=== PATIENT | female | born 1930 | race African-American/Black ===

== ENCOUNTER 2017-07-05 22:46 | Observation (INO) | payer MEDICARE, BC ==
[~2017-07-05] VITALS: Ht 157.5 cm; Wt 53.5 kg
--- NOTE | ~2017-07-05 | CO ---
Unit #: [id number] #: [id number] Patient: TAVON CRUZ [id number] [facility] [address] [facility] [place], [place] [address] [id number] Breanna MR#: [id number] NAME: TAVON CRUZ ROOM: 575 Age: 86 Sex: F Admission Date: 07/06/2017 : 1930 Attending Physician: Ford Rivera M.D. Primary Care Physician: Primary Care Physician No CONSULTATION REPORT REASON FOR CONSULTATION Left facial numbness. PRIMARY CARE PHYSICIAN Dr. Mejia. PATIENT IDENTIFICATION This is an 86-year-old right-handed female, who is evaluated in room [address] [facility]. SOURCE OF INFORMATION The patient and her daughter and my discussion with the admitting team. PROBLEM LIST 1. Hypertension. 2. Hypothyroidism. 3. Allergies. 4. Degenerative disk disease. 5. Thyroid surgery. 6. Hernia repair. 7. Bowel blockage surgery. 8. Esophageal surgery. HISTORY OF PRESENT ILLNESS This is a very pleasant 86-year-old right-handed female, who was actually admitted because she reported some numbness on the left side of the face, but when asked she said that this has been going on for several days and it got worse yesterday. One of the other issues that she has is her blood pressure has been elevated, when she came in her blood pressure was 208/96. The patient and her daughter reports that whenever her other daughter gets stressed, they have altercation and her blood pressure goes up. There was never weakness. There was never double vision. There was never speech, swallowing, or breathing problems. There was never focal weakness, drooling, or other issues. There were no facial asymmetry. This has been going on for several days and I reviewed her MRI and to my view on my monitor, it looks okay with significant small-vessel disease, but nothing acute and if it was going on for several days, then likely it would have shown up. She is already on aspirin. She is already on Lipitor. No change in medication. No headaches, no nausea, no vomiting, no seizures, no migraine. Unit #: [id number] #: [id number] Patient: TAVON CRUZ PAST MEDICAL HISTORY As discussed above. PAST SURGICAL HISTORY As discussed above. ALLERGIES Latex. HOME MEDICATIONS Norvasc, aspirin, Claritin, Lipitor, mirtazapine, vitamin D, and Ergo capsule. FAMILY HISTORY Reviewed and noncontributory secondary to her age. No stroke in young or other such condition. SOCIAL HISTORY No alcohol, tobacco, or IV drug use. REVIEW OF SYSTEMS Detailed review of systems was attempted. GENERAL: The patient denies any weight issues. Denies any sleep issues. Denies any fever, chills, rigors, or sweats. HEENT: No headaches. No double vision, earache, runny nose, or sore throat. She had left-sided numbness of the face, which has resolved, it sort of comes and goes. NECK: No neck problems. CARDIOVASCULAR: No chest pain, clubbing, cyanosis, orthopnea, or palpitation. PULMONARY: No shortness of air, cough, or expectoration. GI: No nausea, vomiting, diarrhea, or constipation. GENITOURINARY: No genitourinary symptoms. EXTREMITIES: No extremity problems. BACK: No back problem. PSYCHIATRIC: No psychotic issue. NEUROLOGIC: Issue as discussed. No other hematologic, dermatologic, or endocrine problems. PHYSICAL EXAMINATION VITAL SIGNS: Temperature 98 degrees Fahrenheit, pulse 63, and respirations 18. Blood pressure 131/65, it was as high as 208 systolic and 104 diastolic. O2 saturations were 98% to 100%. Weight of 117 pounds. BMI was 21. NEUROLOGIC: The patient is awake. She is alert. She is oriented. She can name. She can follow commands. No right/left confusion. No finger agnosia. Cranial nerve examination demonstrates full alberto of vision to confrontation. Eye movements are conjugate. I did not see any ptosis. I did not see any nystagmus. Extraocular movements are intact. Sensation on the face and scalp are normal. Strength of muscles of facial expression are normal. Hearing seemed to be intact bilaterally. Tongue was midline. I could not visualize her oropharynx or uvula. Head turning was spontaneous. Motor examination demonstrated normal bulk, tone. Strength was 5-/5 all Unit #: [id number] #: [id number] Patient: TAVON CRUZ. Sensory examination intact for soft touch and pain sensation. No extinction was seen. Romberg was not evaluated. Gait examination was deferred. I could not get any reflexes. Toes are equivocal. DIAGNOSTIC STUDIES LABORATORY RESULTS: Reviewed. Her sodium was 130. Cholesterol was 222 and LDL 78. Hemoglobin A1c not checked. B12 pending. White count was 3.8. Urinalysis was unremarkable. IMAGING STUDIES: MRI reviewed and results are pending. IMPRESSION A very interesting 86-year-old female with numbness on the left side of the face going on for several days. I saw the CTA and MRI, I do not see anything acute and if it is negative, I agree with increasing aspirin to 325 and continuing Lipitor and follow up with Neurology as an outpatient. I do recommend checking hemoglobin A1c now or as an outpatient do carotid ultrasounds, at least an echo and go from there. It does not look like reversible ischemic neurological deficit or stroke or transient ischemic attack are present, but because of her age and risk factor that has to be considered. Call me for any other questions, issues, or concerns. Dictated by... Stephanie Lobo/leilani TD: 07/07/2017 12:24 JOB #: [id number] CONSULTATION REPORT Page 1 of 1 X Zacarias Ames MD X CONSULTATION REPORT
--- NOTE | ~2017-07-05 | HP ---
Unit #: [id number] #: [id number] Patient: TAVON VELASQUEZ [id number] [address] [place], [place] [address] [id number] I MR#: [id number] NAME: TAVON VELASQUEZ ROOM: 575 Age: 86 Sex: F Admission Date: 07/06/2017 : 1930 Attending Physician: Ford Rivera M.D. Primary Care Physician: No Primary Care Physician HISTORY AND PHYSICAL Primary care provider is [place]. CHIEF COMPLAINT Left facial numbness. HISTORY OF PRESENT ILLNESS Ms. Velasquez is a really nice 86-year-old -Irish female who presents to the ER for above. Patient states she has had a 1 week history of intermittent left facial numbness. Numbness is present only over the maxillary portion of the cheek down to the jaw bone. It will occur spontaneously and then resolve spontaneously. She has had no associated speech difficulties, no difficulty swallowing, any vision change nor any tingling, numbness, weakness of the upper extremities. Symptoms began when her daughter began stressing her out within the last week. However, last night she noted her blood pressure at home was quite high. She became confused and, thus, presented to the emergency department. Upon presentation, patient's blood pressure was 208/96. It appears she was given 0.1 mg of clonidine p.o., 10 mg of hydralazine and her blood pressure came down. Her numbness has resolved. Blood pressure since last night has been completely normal at 100-120 systolic. Her daughter, with whom she lives, is also present and states her blood pressure is well controlled at 120-130 systolic at home on her lisinopril. Patient has had similar complaints of tingling, numbness and weakness of the left side in 2005 and, unfortunately, records are somewhat sketchy but appears it is felt she had a questionable TIA. She has been taking aspirin daily at home. Again, her symptoms at this point are completely resolved. She has not had any chest pain, any palpitations, any orthopnea, any cough, any fever or any other associated symptoms. PAST MEDICAL HISTORY 1. Hypertension. 2. Seasonal allergies. 3. Hypothyroidism. 4. Questionable history of TIA in 2005. 5. Chronic physical deconditioning requiring a walker and wheelchair. 6. History of small bowel obstruction. PAST SURGICAL HISTORY 1. Partial thyroidectomy for goiter. 2. Bowel surgery x2 for small bowel obstruction. 3. Right inguinal hernia x2. ALLERGIES Allergies include latex. Unit #: [id number] #: [id number] Patient: TAVON VELASQUEZ MEDICATIONS Home medications include: 1. Aspirin 81 mg daily. 2. Zyrtec 10 mg daily. 3. Remeron 15 mg at bedtime. 4. Lisinopril 20 mg daily. 5. Levothyroxine 75 mcg p.o. daily. FAMILY HISTORY Significant for cancer and hypertension. SOCIAL HISTORY Patient lives at home with her daughter. Again, she does require a walker or wheelchair for ambulation. She has had 2 recent falls at home for which her PCP is aware without any injury. No alcohol, no tobacco, no illicit drug use. REVIEW OF SYSTEMS No recent weight change, no vision change, no difficulty swallowing, no hot or cold symptoms, no fever, no chest pain, no palpitations, no orthopnea, no cough, no constipation, diarrhea, melena or hematochezia, no dysuria, no new skin lesion. Again, left facial numbness is now resolved. Otherwise, 10-point review of systems is negative. PHYSICAL EXAM VITAL SIGNS: Current temperature 98.4, blood pressure 121/77, pulse rate 71, respiratory rate 13, oxygen saturation is 100% on room air. GENERAL: Patient is awake, alert. She is oriented x3 and very pleasant. HEENT: Pupils equally round and reactive to light bilaterally. Anicteric sclerae. No conjunctival pallor. Oropharynx with moist mucous membranes. No erythema or exudate. NECK: Neck is supple. No lymphadenopathy. No appreciable thyroid present. No JVD. HEART: Heart is regular rate and rhythm without any murmur, rub or gallop. LUNGS: Lungs are clear to auscultation bilaterally. ABDOMEN: Abdomen is soft, nontender, nondistended. Positive bowel sounds. No appreciable hepatosplenomegaly. EXTREMITIES: No cyanosis, clubbing, or edema. Pedal pulses 2/4. SKIN: Skin is warm, moist, is without rash. MUSCULOSKELETAL: No joint erythema noted. 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 NEUROLOGIC: Cranial nerves II-XII are intact bilaterally. Strength is 4+/5 in the upper extremities bilaterally and 3+ to 4 in the lower extremities bilaterally. Negative Babinski. Patellar reflex is 2/4 bilaterally as is brachioradialis reflex bilaterally. Gait, however, was not assessed nor was rapid alternating hand movements. Pronator drift is negative. DIAGNOSTIC STUDIES LABORATORY: Lab work done in the emergency department reveals a white blood cell count of 3.8, hemoglobin 12.1, platelet count of 232,000. CMP reveals a sodium of 130, potassium 3.9, chloride 94, bicarb 29, BUN 7, creatinine 0.4, glucose of 93. LFTs are all normal and calcium mildly low at 8.3. Unit #: [id number] #: [id number] Patient: TAVON VELASQUEZ Urinalysis is completely normal. Initial troponin in the ER was negative. CARDIOVASCULAR: EKG reveals normal sinus rhythm. There is Q wave present in V4 through V6 but no other acute abnormalities. IMAGING: CT scan of the head without contrast in the emergency department was negative for any acute change. Small vessel changes were noted. ASSESSMENT 1. Intermittent left check paresthesia, question TIA versus other. 2. Hypertension with hypertensive crisis, now resolved. 3. Leukopenia without baseline. 4. Mild hypocalcemia. 5. Gastroesophageal reflux disease. 6. Hypothyroidism. 7. Physical deconditioning. 8. Probable osteoporosis. PLAN 1. Will admit patient to observation. 2. CT scan of the head, as noted above, was already done. MRI of the brain has been ordered and is currently pending and Dr. Ames has been consulted for evaluation. 3. I am going to check a TSH and fasting lipid panel (1) lab for completeness. I will also check a vitamin B12 level. 4. I will place patient on calcium tablets to hopefully improve calcium levels. 5. I think leukopenia can be monitored as an outpatient. It may very well be chronic in this elderly patient. 6. Continue home medications for other chronic conditions. 7. Anticipate discharge home if MRI is negative. Dictated by Africa Beltrán M.D. SANDIE/bentley TD: 07/06/2017 15:08 JOB #: [id number] HISTORY AND PHYSICAL Page 1 of 1 X Africa Beltrán MD HISTORY AND PHYSICAL
--- NOTE | ~2017-07-05 | CT71 ---
[facility] A Service of [facility] RADIOLOGY TEXT RESULTS PATIENT: TAVON CRUZ LOCATION: [facility] : 32 UNIT #: [id number] AGE: [address]: Ford Rivera MD SEX: F ORDER DR: [id number] [place], [place] [address] [id number] MR#: [id number] Acc #: [id number] NAME: TAVON CRUZ : 1930 SEX: F STUDY DATE/TIME: 07/06/2017 0:20 UNIT: [facility] ROOM: [facility] STUDY DESCRIPTION: CT Head Wo Contrast Attending Physician: Ford Rivera M.D. Ordering Physician: Sergey Tuttle M.D. Primary Care Physician: Primary Care Physician No MEDICAL IMAGING REPORT This report is preliminary unless electronic signature is present EXAM CT head without contrast INDICATIONS Left-sided facial numbness off and on today PROCEDURE Unenhanced CT of the head. This CT exam was performed with one or more of the following radiation dose reduction techniques: automatic exposure control, adjustment of mA and/or kV according to patient size, and iterative reconstruction. COMPARISON 10/21/2006 FINDINGS No acute hemorrhage, abnormal mass effect, extraaxial fluid collection or hydrocephalus. Diffuse white matter hypoattenuation. No definitive evidence for acute early subacute large territory infarct. No depressed calvarial fracture. Paranasal sinuses and mastoid air cells are clear. IMPRESSION 1. No acute intracranial findings. 2. Chronic small vessel ischemic change. 3. If there is ongoing clinical suspicion for an acute early subacute infarct, brain MRI may be helpful. Dictated by... Bonifacio Pruitt M.D. THIS IS AN ELECTRONICALLY VERIFIED REPORT [facility] A Service of [facility] RADIOLOGY TEXT RESULTS PATIENT: TAVON CRUZ LOCATION: [facility] : 32 UNIT #: [id number] AGE: [address]: Ford Rivera MD SEX: F ORDER DR: Bonifacio Pruitt M.D. at 07/07/2017 10:03 PM EED/to TD: 07/06/2017 13:40 JOB #: [id number] MEDICAL IMAGING REPORT Page 1 of 1 COPY
--- NOTE | ~2017-07-05 | MR18 ---
[facility] A Service of [facility] & [facility] RADIOLOGY TEXT RESULTS PATIENT: TAVON CRUZ LOCATION: [facility] 575-01 : 32 UNIT #: [id number] AGE: [address]: Ford Rivera MD SEX: F ORDER DR: [id number] [facility] [address] [place], [place] [address] [id number] I MR#: [id number] Acc #: [id number] NAME: TAVON CRUZ : 1930 SEX: F STUDY DATE/TIME: 07/06/2017 13:13 UNIT: [facility] ROOM: [facility] STUDY DESCRIPTION: MR Brain Wo Contrast Attending Physician: Ford Rivera M.D. Ordering Physician: Robin Garrett M.D. Primary Care Physician: Primary Care Physician No MRI CENTER REPORT This report is preliminary unless electronic signature is present. EXAM MRI brain without HISTORY Numbness left side of face off and on for a week. History of hypertension. FINDINGS MRI of the brain was performed without contrast using routine 1.5T imaging technique with motion limiting sequences. Comparison head CT is from 07/06/2017. Prior brain MRI is from 10/22/2006. There is no evidence for a recent ischemic insult on the diffusion series. There is generalized atrophy, age appropriate. There is incidental note made of a partially empty sella. There is no extraaxial fluid collection. There is extensive white matter signal abnormality most confluent in the periatrial white matter. Also fairly extensive lacunar disease in the bilateral basal ganglia and thalami as well as mild to moderate signal abnormality in the brain stem. Findings are probably due to small vessel disease given age group and risk factors and there is considerable progression of pathology since 2005 study. The major arterial intracranial flow voids are maintained. There is fluid or inflammatory change in the right greater than left side mastoid air cells. Paranasal sinuses are clear. The patient has had cataract surgery bilaterally. There is no MRI evidence for intracranial hemorrhage. Preliminary wet reading provided by Dr. Watson 18:32 07/06/2017. IMPRESSION 1. No evidence for a recent ischemic insult on the diffusion series. 2. Extensive probable sequela of small vessel disease progressed from the study of 2005. 3. Fluid or inflammatory change mastoid air cells particularly on the STS. [facility] A Service of [facility] & [facility] RADIOLOGY TEXT RESULTS PATIENT: TAVON CRUZ LOCATION: [facility] 575-01 : 32 UNIT #: [id number] AGE: [address]: Ford Rivera MD SEX: F ORDER DR: right side. STAT * RESULT Dictated by... Opal Harris M.D. THIS IS AN ELECTRONICALLY VERIFIED REPORT Opal Harris M.D. at 07/08/2017 2:10 PM Stefan TD: 07/08/2017 08:26 JOB #: [id number] MRI CENTER REPORT Page 1 of 1 COPY
--- NOTE | ~2017-07-05 | DS ---
Unit #: [id number] #: [id number] Patient: TAVON VELASQUEZ [id number] [address] [address] [id number] I MR#: [id number] NAME: TAVON VELASQUEZ ROOM: 575 Age: 86 Sex: F Admission Date: 07/06/2017 : 1930 Discharge Date: 07/06/2017 Attending Physician: Ford Rivera M.D. Primary Care Physician: No Primary Care Physician DISCHARGE SUMMARY PRIMARY CARE PROVIDER Dr. Mejia. PRINCIPAL DIAGNOSES 1. Left facial paresthesia. 2. Hypertensive crisis now returned to normal on home medications. 3. Hypertension. 4. Hypertension. 5. Hypothyroidism with stable TSH. 6. Seasonal allergies. 7. Physical deconditioning. 8. Mild hypocalcemia. 9. Leukopenia. 10. Gastroesophageal reflux disease. CONSULTANTS Dr. Ames, neurology. PROCEDURES 1. CT scan of the head without contrast on July 06, 2017 with no acute findings. A small vessel ischemic change noted. 2. MRI of the brain which is done but is still currently pending. CLINICAL HISTORY AND HOSPITAL COURSE Miss Velasquez is a really nice 86-year-old -[place] female who presents to the emergency department with a one-week history of intermittent facial numbness. Please refer to H and P for further details. CT scan in the emergency department was unremarkable. However, patient was found to be significantly hypertensive with a blood pressure of greater than 200 upon presentation. She was subsequently admitted. Patient has had no further paresthesias of the left cheek since admission. She was seen in consultation by Dr. Ames who agreed with MRI. MRI has been done but is still currently pending. However, I anticipate this should be negative for stroke. Patient's daughter states that the patient's symptoms tend to come on when she becomes excessively worried and/or anxious about some of her other children. She thinks this is the likely cause. I anticipate if MRI is negative patient will be discharged home and she will require a followup as noted. No further change in medications otherwise. DISCHARGE CONDITION Stable. Unit #: [id number] #: [id number] Patient: TAVON VELASQUEZ DISCHARGE STATUS Discharge to home. DISCHARGE MEDICATIONS 1. Aspirin 81 mg daily. 2. Zyrtec 10 mg daily. 3. Remeron 15 mg at bedtime. 4. Lisinopril 20 mg daily. 5. Levothyroxine 75 mcg p.o. daily, and 6. Calcium plus vitamin D 600 mg p.o. b.i.d. DISCHARGE INSTRUCTIONS 1. Patient was instructed to follow a regular diet. 2. She can increase her activity as tolerated. FOLLOWUP Patient will follow up with her primary care provider Dr. Mejia on an outpatient basis. Leukopenia can be followed up at that visit as well. Recheck calcium at that visit as well. Dictated by... Africa Beltrán M.D. SANDIE/ana rosa TD: 07/08/2017 15:47 JOB #: [id number] DISCHARGE SUMMARY Page 1 of 1 X Africa Beltrán MD X DISCHARGE SUMMARY
--- NOTE | ~2017-07-05 | DS ---
Unit #: [id number] #: [id number] Patient: TAVON CRUZ [id number] [address] [address] [id number] I MR#: [id number] NAME: TAVON CRUZ ROOM: 575 Age: 86 Sex: F Admission Date: 07/06/2017 : 1930 Discharge Date: 07/06/2017 Attending Physician: Ford Rivera M.D. Primary Care Physician: No Primary Care Physician DISCHARGE SUMMARY ADDENDUM Please note on her discharge medications her aspirin is to be increased to 325 mg p.o. daily, outpatient carotid Doppler to evaluate for disease. I will note vitamin B12, TSH were all normal here. Fasting lipid panel is currently pending. A hemoglobin A1C can be done as an outpatient. Dictated by... Africa Beltrán M.D. SANDIE/ana rosa TD: 07/08/2017 16:01 JOB #: [id number] DISCHARGE SUMMARY Page 1 of 1 X Africa Beltrán MD X DISCHARGE SUMMARY
--- NOTE | ~2017-07-05 | EKG ---
PATIENT: TAVON CRUZ UNIT #: [id number] Ventricular Rate: 70 BPM Atrial Rate: 70 BPM P-R Interval: 164 ms QRS Duration: 78 ms Q-T Interval: 436 ms QTC Calculation(Bezet): 470 ms P Seaview: 49 degrees Calculated R Seaview: 28 degrees Calculated T Seaview: 64 degrees Diagnosis Line: Normal sinus rhythm Diagnosis Line: Baseline wander Normal ECG Diagnosis Line: No previous ECGs available Diagnosis Line: Confirmed by JOSE SALAZAR MD ([id number]) on 07/07/2017 Diagnosis Line: 2:00:02 PM INTERPRETING MD: AMRTIN NG
[~2017-07-05 22:46] MED LIST: ASPIRIN PO; CLARITIN10 MG PO; LIPITOR PO; NORVASC; ROBITUSSIN ALL118 ML PO
[2017-07-06 00:11] LABS: POC - CKMB 1.2 ng/mL (0.0-7.9); POC - TROPONIN <0.05 ng/mL (<=0.05)
[2017-07-06 00:15] LABS: URINE SOURCE CLEAN CATCH
[2017-07-06 00:20] LABS: URINE APPEARANCE CLEAR; URINE BILIRUBIN NEG (NEG); URINE BLOOD NEG (NEG); URINE COLOR YELLOW; URINE GLUCOSE NEG (NEG); URINE KETONE NEG (NEG); URINE LEUKOCYTE ESTERASE NEG (NEG); URINE NITRATE NEG (NEG); URINE PROTEIN NEG (NEG); URINE SPECIFIC GRAVITY 1.014 (1.003-1.035); URINE UROBILINOGEN 0.2 MG/DL (NEG)
[2017-07-06 00:21] LABS: BASOPHIL% 1.2 % (0-2.5); EOSINOPHIL% 0.9 % (0.0-7.0); HEMATOCRIT 37.5 % (35.0-45.0); HEMOGLOBIN 12.1 gm/dL (12.0-16.0); LYMPHOCYTE# 1.2 X10e3 (1.0-3.5); LYMPHOCYTE% 30.3 % (17.0-45.0); MEAN CELL VOLUME 85.7 FL (83-96); MEAN CORPUSCULAR HEMOGLOBIN 27.7 PG (28-34); MEAN CORPUSCULAR HGB CONC 32.3 g/dL (30-36); MEAN PLATELET VOLUME 8.1 FL (6.5-11.5); MONOCYTE# 0.4 X10e3 (0-1.0); MONOCYTE% 10.4 % (3.0-12.0); NEUTROPHIL# 2.2 X10e3 (1.5-7.1); NEUTROPHIL% 57.2 % (40-75); PLATELET COUNT 232 X10e3 (140-420); RED BLOOD COUNT 4.37 X10e (3.90-5.30); RED CELL DISTRIBUTION WIDTH 17.5 % (11.0-15.5); WHITE BLOOD COUNT 3.8 X10e3 (4.0-10.5)
[2017-07-06 00:22] LABS: DIFF IND NO
[2017-07-06 00:42] LABS: ALBUMIN SERUM 4.2 g/dL (3.5-5.0); BILIRUBIN, DIRECT 0.1 mg/dL (0.0-0.2); BILIRUBIN,INDIRECT 0.5 mg/dL (0.0-0.9); BILIRUBIN,TOTAL 0.6 mg/dL (0.2-2.0); BUN/CREATININE RATIO 17.5; CALCIUM SERUM 8.3 mg/dL (8.4-10.2); CREATININE SERUM 0.4 mg/dL (0.6-1.4); GLOM FILT RATE Estimated 110.9 mL/min (>60); POTASSIUM 3.9 mmol/L (3.5-5.1); PROTEIN TOTAL SERUM 7.5 g/dL (6.0-8.3)
[2017-07-06] MEDS ORDERED: ALL DAY ALLERGY10 M3 PO (01:15)
[2017-07-06] MEDS ORDERED: LEVOTHYROXINE75 MCG PO (01:16)
[2017-07-06] MEDS ORDERED: LISINOPRIL20 MG PO (01:16)
[2017-07-06] MEDS ORDERED: REMERON15 MG PO (01:16)
[2017-07-06] MEDS ORDERED: ASPIRIN ENTERI325 M1 PO (01:17)
[2017-07-06 14:21] LABS: CHOLESTEROL 222 mg/dL (0-200); HDL CHOLESTEROL >135 mg/dL (35-95); LDL CHOLESTEROL 78 mg/dL ([, -130]); LDL/HDL RATIO 0 RATIO (0-4); TRIGLYCERIDES 46 mg/dL (10-160)
[2017-07-06] MEDS ORDERED: CALCIUM 600 +1 EAC1 PO (19:14)
== END 2017-07-06 20:03 | disposition home or self-care (01) ==
LOC: CED 22:46 → CEDOF 07-06 01:10 → C5C 07-06 07:46
PROVIDERS: Emergency Medicine; Internal Medicine
DX: R20.2 Paresthesia of skin (principal); I16.9 Hypertensive crisis, unspecified; I10 Essential (primary) hypertension; J30.2 Other seasonal allergic rhinitis; E83.51 Hypocalcemia; D72.819 Decreased white blood cell count, unspecified; K21.9 Gastro-esophageal reflux disease without esophagitis; E89.0 Postprocedural hypothyroidism; Z91.040 Latex allergy status; Z79.82 Long term (current) use of aspirin; Z79.899 Other long term (current) drug therapy; Z98.890 Other specified postprocedural states
CPT/HCPCS: 36415; 70450; 70551; 80048; 80061; 80076; 81003; 82553; 82607; 84443; 84484; 85025; 93005; 96374; 99285; G0378; J0360